=== PATIENT | male | born 1980 | race Hispanic/Latino ===

== ENCOUNTER 2021-06-16 21:15 | Emergency (ER) | payer SELFPAY ==
[2021-06-16] VITALS (9 sets, daily range): BP systolic 118–141; BP diastolic 73–82; PULSE 68–98; RESP 17–22; TEMP 37; O2SAT 98–100; BMI 19.7
--- NOTE | 2021-06-16 22:19 | ED.ARRPALP ---
HPI - Arrhythmia/Palpitations General Chief Complaint: Arrhythmia/Palpitations Stated Complaint: TAKEN DRUGS AND ALCOHOL NOT WELL Time Seen by Provider: 06/16/21 21:47 Source: patient Mode of arrival: Ambulatory History of Present Illness HPI narrative: Otherwise healthy 41-year-old gentleman with very little alcohol or drug use exposure was out Thursday night with friends drinking, snorting white lines of powder that he thought was cocaine and using marijuana. Since then he has been agitated, anxious, unable to sleep has no appetite and is hypervigilant. He comes in for further evaluation. He complains that his stomach is somewhat upset, mild headache, no vomiting or diarrhea. No palpitations or chest pain. Related Data Allergies Allergy/AdvReac Type Severity Reaction Status Date / Time No Known Drug Allergies Allergy Verified 06/16/21 22:31 Review of Systems Review of Systems Narrative: Remainder of complete review of systems is otherwise unremarkable except for that included in the HPI. Exam Initial Vital Signs Initial Vital Signs: Vital Signs Temperature 98.6 F 06/16/21 21:23 Pulse Rate 98 H 06/16/21 21:23 Respiratory Rate 20 06/16/21 21:23 Blood Pressure 141/79 H 06/16/21 21:23 Pulse Oximetry 98 06/16/21 21:23 General: Healthy appearing, in no acute distress. Hypervigilant but able to give a complete and coherent history. Well-nourished well-developed HEENT: Moist mucous membranes, normal sclera with reactive pupils, Neck: No JVD, supple Respiratory: Lungs are clear to auscultation, no wheezing no rales no rhonchi. Full and symmetrical air movement Cardiac: Regular rate and rhythm no murmurs no bruits Abdomen: Soft, nontender, good bowel tones, no flank pain Skin: Warm and dry, no rashes Neurologic: Grossly neurologically intact with no obvious asymmetries or abnormalities Extremities: No trauma, well perfused Psych: Hypervigilance but can calm and focus, can maintain eye contact, concerned about his physical condition Course Orders Ordered: ED Orders 06/16/21 20:35 Complete Blood Count AUTO DIFF Stat Comprehensive Metabolic Panel Stat 06/16/21 20:50 urine tox [Urine Drug Screen, Rapid] Stat Discontinued Medications Sodium Chloride (Normal Saline 0.9%) 1,000 mls @ 1,000 mls/hr IV BOLUS ONE Stop: 06/16/21 23:26 Last Admin: 06/16/21 22:46 Dose: 1,000 mls/hr Documented by: ATAYLOR Lorazepam (Lorazepam 2 Mg/Ml Inj) 1 mg IV NOW ONE Stop: 06/16/21 22:28 Last Admin: 06/16/21 22:45 Dose: 1 mg Documented by: FLORY Vital Signs Vital signs: Vital Signs - 8 hr 06/16/21 21:23 06/16/21 21:31 06/16/21 22:00 Temperature 98.6 F Pulse Rate 98 H 78 71 Respiratory Rate 20 22 20 Blood Pressure 141/79 H Pulse Oximetry 98 06/16/21 22:23 06/16/21 22:30 06/16/21 23:00 Temperature Pulse Rate 88 86 79 Respiratory Rate 17 17 21 Blood Pressure 130/82 Pulse Oximetry 98 99 99 06/16/21 23:06 Temperature Pulse Rate 78 Respiratory Rate 21 Blood Pressure 123/73 Pulse Oximetry 98 MDM - Arrhythmia/Palpitations Lab Data Result diagrams: 06/16/21 20:35 06/16/21 20:35 Labs: Lab Results 06/16/21 06/16/21 06/16/21 Range/Units 20:35 20:35 20:50 WBC 6.2 (4.5-11.0) X10^3/uL RBC 4.71 (4.5-5.9) X10^6/uL Hgb 14.1 (13.5-17.5) g/dL Hct 41.9 (41-53) % MCV 88.8 (80-100) fL MCH 30.0 (26-34) PG MCHC 33.8 (30-36) % RDW 13.3 (11.6-14.8) % Plt Count 195 (150-400) X10^3/uL Neut % (Auto) 62.3 (50-75) % Lymph % (Auto) 28.0 (25-40) % [place] % (Auto) 8.0 (3-14) % Eos % (Auto) 1.1 L (2-4) % Baso % (Auto) 0.6 (0-2) % Neut # (Auto) 3900 (7658-5114) /uL Lymph # (Auto) 1700 (5978-5534) /uL [place] # (Auto) 500 (0-900) /uL Eos # (Auto) 100 (0-450) /uL Baso # (Auto) 0 (0-100) /uL Sodium 139 (137-145) mmol/L Potassium 4.3 (3.4-5.1) mmol/L Chloride 109 H (98-107) mmol/L Carbon Dioxide 22 (22-32) mmol/L BUN 17 (9-20) mg/dL Creatinine 0.74 (0.66-1.25) mg/dL Estimated GFR > 60.0 (>60) mL/min BUN/Creatinine Ratio 23.0 H (6-22) Glucose 102 H (70-100) mg/dL Calcium 9.1 (8.4-10.2) mg/dL Total Bilirubin 0.7 (0.2-1.3) mg/dL AST 37 (17-59) IU/L ALT 19 (<50) IU/L Alkaline Phosphatase 84 (38-126) U/L Total Protein 8.1 (6.3-8.2) g/dL Albumin 4.7 (3.5-5.0) g/dL Globulin 3.4 (1.7-4.1) g/dL Albumin/Globulin Ratio 1.4 (1.0-2.8) U Opiates 300ng/mL cut Negative (Negative) Ur Oxycodone Screen Negative (Negative) Urine Methadone Screen Negative (Negative) Ur Barbiturates Screen Negative (Negative) U Tricyclic Antidepress Negative (Negative) Ur Phencyclidine Scrn Negative (Negative) Ur Amphetamines Screen Positive H (Negative) U Methamphetamines Scrn Positive H (Negative) Ur MDMA Scrn (Ecstasy) Negative (Negative) U Benzodiazepines Scrn Negative (Negative) Urine Cocaine Screen Negative (Negative) U Marijuana (THC) Screen Negative (Negative) MDM Narrative Medical decision making narrative: 41-year-old gentleman with minimal drug or alcohol exposure not he was doing lines of cocaine with some friends on Thursday it turns out he was doing lines of methamphetamine. His symptoms are entirely consistent with a hypervigilance associated with methamphetamine. He is calm nicely with a dose of Ativan and a L of fluid. He has a ride home tonight. Will give him an oral dose of Valium to help again with the hyperstimulation/hypervigilance. There is no sign of acute coronary syndrome or infection. No sign of acute psychiatric disturbance. He is safe for home discharge Discharge Plan Departure Patient Disposition: Home Clinical Impression: Adverse reaction to drug Activity Restrictions/Additional Instructions: Thank you for coming in tonight It turns out that what you thought was cocaine that your snorting on Thursday night was in fact methamphetamine. The stimulant effects from methamphetamine can last for days and that is why you are having trouble sleeping and have no appetite. In the emergency department you were given a L of fluid and benzodiazepines to help slow your brain down. There is no other clinical problem and you do not need to be in the hospital Your body clearly does not respond well to methamphetamine and I would recommend avoiding it at all cost in the future.
[2021-06-16] MEDS: LORazepam 2 MG/ML INJ 1 MG IV (22:45)
[2021-06-16] MEDS: SODIUM CHLORIDE 0.9% 1,000 ML 1000 ML IV (22:46)
[2021-06-16 22:48] LABS: Add Manual Diff / Slide Review NO; Basophils Absolute Auto 0 /uL (0-100); Basophils Percent Auto 0.6 % (0-2); Eosinophils Absolute Auto 100 /uL (0-450); Eosinophils Percent Auto 1.1 % (2-4); Hematocrit 41.9 % (41-53); Hemoglobin 14.1 g/dL (13.5-17.5); Lymphocytes Absolute Auto 1700 /uL (1100-4500); Mean Corpuscular HGB Conc 33.8 % (30-36); Mean Corpuscular Volume 88.8 fL (80-100); Monocytes Absolute Auto 500 /uL (0-900); Neutrophils Absolute Auto 3900 /uL (1500-7000); Neutrophils Percent Auto 62.3 % (50-75); Platelet Count 195 X10^3/uL (150-400); Red Blood Cell Count 4.71 X10^6/uL (4.5-5.9); Red Cell Distribution Width 13.3 % (11.6-14.8); White Blood Cell Count 6.2 X10^3/uL (4.5-11.0)
[2021-06-16 22:56] LABS: Alanine Aminotransferase 19 IU/L (<50); Albumin 4.7 g/dL (3.5-5.0); Albumin Globulin Ratio 1.4 (1.0-2.8); Alkaline Phosphatase 84 U/L (38-126); Aspartate Aminotransferase 37 IU/L (17-59); Bilirubin Total 0.7 mg/dL (0.2-1.3); Blood Urea Nitrogen 17 mg/dL (9-20); Calcium 9.1 mg/dL (8.4-10.2); Carbon Dioxide 22 mmol/L (22-32); Chloride 109 mmol/L (98-107); Estimated Glomerular Filt Rate > 60.0 mL/min (>60); Globulin 3.4 g/dL (1.7-4.1); Glucose 102 mg/dL (70-100); HEMOLYSIS 54 (0-50); Potassium 4.3 mmol/L (3.4-5.1); Sodium 139 mmol/L (137-145); Total Protein 8.1 g/dL (6.3-8.2)
[2021-06-16 23:04] LABS: UR Morphine/Opiate cutoff 300 Negative (Negative); Ur Creatinine 20 (Normal); Ur Specific Gravity 1.025 (Normal); Urine Amphetamines Positive (Negative); Urine Cocaine Negative (Negative); Urine Tetrahydrocannabinol Negative (Negative); Urine pH 5 (Normal)
[2021-06-16 23:05] LABS: Urine Barbiturates Negative (Negative); Urine Benzodiazepines Negative (Negative); Urine MDMA Negative (Negative); Urine Methadone Negative (Negative); Urine Methamphetamines Positive (Negative); Urine Oxycodone Negative (Negative); Urine Phencyclidine Negative (Negative); Urine Tricyclic Antidepressant Negative (Negative)
[2021-06-17] VITALS: BP 125/84; PULSE 85; RESP 18; O2SAT 100
[2021-06-17] MEDS: diazePAM 5 MG TABLET PO (00:08)
== END 2021-06-17 00:19 | disposition home or self-care (01) ==
PROVIDERS: Emergency Provider Emergency Medicine
DX: R45.1 Restlessness and agitation (principal); R51.9 Headache, unspecified; R03.0 Elevated blood-pressure reading, without diagnosis of hypertension; T43.625A Adverse effect of amphetamines, initial encounter
CPT/HCPCS: 36415; 80053; 80305; 85025; 93005; 93010; 96374; 99284; J2060

== ENCOUNTER 2022-09-22 09:38 | Emergency (ER) | payer SELFPAY ==
[2022-09-22] VITALS (7 sets, daily range): BP systolic 113–127; BP diastolic 69–79; PULSE 64–83; RESP 11–22; TEMP 36.4–36.7; O2SAT 96–99; BMI 18.8
--- NOTE | 2022-09-22 09:50 | DI.RAD.S_ITS ---
PROCEDURE: XR CHEST 1V INDICATIONS: cough TECHNIQUE: One view of the chest was acquired. COMPARISON: None. FINDINGS: Surgical changes and devices: None. Lungs and pleura: There is ill-defined biapical nodularity with pleural parenchymal scarring and cephalad retraction of the pulmonary jonatan. No airspace consolidation. No pleural effusions or pneumothorax. Mediastinum: Mediastinal contours appear normal. Heart size is normal. Bones and chest wall: No suspicious bony lesions. Overlying soft tissues appear unremarkable. IMPRESSION: 1. Findings are suggestive of chronic granulomatous disease. There is biapical involvement with biapical volume loss and pleural parenchymal changes. Dictated by: Jeyson Araya M.D. on 09/22/2022 at 10:36 Approved by: Jeyson Araya M.D. on 09/22/2022 at 10:38
[2022-09-22 10:06] LABS: Add Manual Diff / Slide Review NO; Basophils Absolute Auto 0 /uL (0-100); Basophils Percent Auto 0.8 % (0-2); Eosinophils Absolute Auto 0 /uL (0-450); Eosinophils Percent Auto 0.9 % (2-4); Hemoglobin 13.7 g/dL (13.5-17.5); Lymphocytes Absolute Auto 1800 /uL (1100-4500); Lymphocytes Percent Auto 32.2 % (25-40); Mean Corpuscular HGB Conc 34.1 % (30-36); Mean Corpuscular Hemoglobin 30.3 PG (26-34); Mean Corpuscular Volume 88.8 fL (80-100); Monocytes Absolute Auto 400 /uL (0-900); Monocytes Percent Auto 7.8 % (3-14); Neutrophils Absolute Auto 3300 /uL (1500-7000); Neutrophils Percent Auto 58.3 % (50-75); Platelet Count 256 X10^3/uL (150-400); Red Cell Distribution Width 13.2 % (11.6-14.8); White Blood Cell Count 5.6 X10^3/uL (4.5-11.0)
[2022-09-22] MEDS: SODIUM CHLORIDE 0.9% 1,000 ML 1000 ML IV (10:07)
[2022-09-22] MEDS: ONDANSETRON 4 MG/2 ML INJ IV (10:07)
--- NOTE | 2022-09-22 10:07 | ED.CHESTPAIN ---
HPI - Chest Pain General Chief Complaint: Chest Pain Stated Complaint: Chest pain, cough, vomiting, weakness Time Seen by Provider: 09/22/22 09:45 Source: patient Mode of arrival: Ambulatory Limitations: no limitations and language barrier History of Present Illness HPI narrative: Patient 42-year-old finish speaking male without significant past medical history presenting today with a few days of cough shortness of breath. 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 He denies any significant shortness of breath. He has a little cough. He feels a little nauseous no significant abdominal pain. No nausea or vomiting. Decreased appetite. Just generally feeling unwell. Related Data Home Medications Medication Instructions Recorded Confirmed No Known Home Medications 09/22/22 09/22/22 Allergies Allergy/AdvReac Type Severity Reaction Status Date / Time No Known Drug Allergies Allergy Verified 09/22/22 09:48 Review of Systems Review of Systems ROS Unobtainable: All systems reviewed & are unremarkable except as noted in HPI and below Patient History Social History Smoking Status: Current some day smoker Smoking Status: Current some day smoker tobacco type: cigars alcohol intake frequency: 3 or more drinks per day Substance Use Type: marijuana Exam Initial Vital Signs Initial Vital Signs: Vital Signs Temperature 98.0 F 09/22/22 09:40 Pulse Rate 83 09/22/22 09:40 Respiratory Rate 20 09/22/22 09:40 Blood Pressure 127/79 09/22/22 09:40 Pulse Oximetry 99 09/22/22 09:40 Oxygen Delivery Method Room Air 09/22/22 09:40 GENERAL: Alert thin well-appearing 42-year-old male HEENT: Head atraumatic,EOMI, pupils reactive, face symmetric, moist mucous membranes CARDIOVASCULAR: Regular rate and rhythm without murmurs, rubs or gallops. RESPIRATORY: Breath sounds equal bilaterally, no wheezes rales or rhonchi. ABDOMEN: Soft, nontender. Normoactive bowel sounds all 4 quadrants. No guarding or rebound. EXTREMITIES: Normal range of motion, no clubbing or edema. Neurovascularly intact NEUROLOGICAL: Alert and oriented x4. SKIN: Warm, dry, no laceration, no petechiae, no rashes or lesions. Course Orders Ordered: ED Orders 09/22/22 09:48 Complete Blood Count AUTO DIFF Stat Comprehensive Metabolic Panel Stat Lipase Stat Procalcitonin Stat Troponin & CK Cardiac Panel Stat 09/22/22 09:50 XR chest 1V Stat EKG-12 Lead Stat 09/22/22 09:58 Covid-19 + FLU A/B + RSV - PCR Stat Discontinued Medications Sodium Chloride (Normal Saline 0.9%) 1,000 mls @ 1,000 mls/hr IV CONT LETY Last Infusion: 09/22/22 11:11 Dose: 0 mls/hr Documented By: Admin: 09/22/22 10:07 Dose: 1,000 mls/hr Documented By: SHIV Ondansetron HCl (Ondansetron 4 Mg/2 Ml Inj) 4 mg IV NOW ONE Stop: 09/22/22 09:51 Last Admin: 09/22/22 10:07 Dose: 4 mg Documented By: SHIV Pantoprazole Sodium (Pantoprazole 40 Mg Vial) 40 mg IV NOW ONE Stop: 09/22/22 10:09 Last Admin: 09/22/22 10:10 Dose: 40 mg Documented By: SHIV Vital Signs Vital signs: Vital Signs - 8 hr 09/22/22 09:40 09/22/22 09:45 09/22/22 10:00 Temperature 98.0 F Pulse Rate 83 77 69 Respiratory Rate 20 14 15 Blood Pressure 127/79 Pulse Oximetry 99 96 97 Oxygen Delivery Method Room Air 09/22/22 10:01 09/22/22 10:01 09/22/22 10:30 Temperature Pulse Rate 67 Respiratory Rate 11 L Blood Pressure 113/73 114/69 Pulse Oximetry 97 Oxygen Delivery Method 09/22/22 10:30 09/22/22 11:00 09/22/22 11:00 Temperature Pulse Rate 67 64 Respiratory Rate 19 22 Blood Pressure 113/69 Pulse Oximetry 97 97 Oxygen Delivery Method 09/22/22 11:32 Temperature 97.6 F Pulse Rate 81 Respiratory Rate 20 Blood Pressure 113/69 Pulse Oximetry 99 Oxygen Delivery Method Room Air MDM - Chest Pain Lab Data 09/22/22 09:48 09/22/22 09:48 Labs: Lab Results 09/22/22 09/22/22 09/22/22 Range/Units 09:48 09:48 09:58 WBC 5.6 (4.5-11.0) X10^3/uL RBC 4.50 (4.5-5.9) X10^6/uL Hgb 13.7 (13.5-17.5) g/dL Hct 40.0 L (41-53) % MCV 88.8 (80-100) fL MCH 30.3 (26-34) PG MCHC 34.1 (30-36) % RDW 13.2 (11.6-14.8) % Plt Count 256 (150-400) X10^3/uL Neut % (Auto) 58.3 (50-75) % Lymph % (Auto) 32.2 (25-40) % [place] % (Auto) 7.8 (3-14) % Eos % (Auto) 0.9 L (2-4) % Baso % (Auto) 0.8 (0-2) % Neut # (Auto) 3300 (4051-2692) /uL Lymph # (Auto) 1800 (6421-4855) /uL [place] # (Auto) 400 (0-900) /uL Eos # (Auto) 0 (0-450) /uL Baso # (Auto) 0 (0-100) /uL Sodium 137 (137-145) mmol/L Potassium 3.9 (3.4-5.1) mmol/L Chloride 104 (98-107) mmol/L Carbon Dioxide 25 (22-32) mmol/L BUN 12 (9-20) mg/dL Creatinine 0.79 (0.66-1.25) mg/dL Estimated GFR > 60 (>60) mL/min BUN/Creatinine Ratio 15.2 (6-22) Glucose 96 (70-100) mg/dL Calcium 9.0 (8.4-10.2) mg/dL Total Bilirubin 0.6 (0.2-1.3) mg/dL AST 30 (17-59) IU/L ALT 26 (<50) IU/L Alkaline Phosphatase 111 (38-126) U/L Total Creatine Kinase 152 (55-170) U/L Troponin I < 0.012 (0.01-0.034) ng/mL Total Protein 8.0 (6.3-8.2) g/dL Albumin 4.5 (3.5-5.0) g/dL Globulin 3.5 (1.7-4.1) g/dL Albumin/Globulin Ratio 1.3 (1.0-2.8) Lipase 92 (23-300) U/L Procalcitonin 0.05 (<0.5) ng/mL SARS-CoV-2 (PCR) Negative (Negative) Influenza A (RT-PCR) Flu a negative (NEGATIVE) Influenza B (RT-PCR) Flu b negative (NEGATIVE) RSV (PCR) Negative (Negative) Imaging Data Chest x-ray: Radiologist's Impression: PROCEDURE:? XR CHEST 1V ? INDICATIONS:? cough ? TECHNIQUE:? One view of the chest was acquired.? ? COMPARISON:? None. ? FINDINGS:? ? Surgical changes and devices:? None.? ? Lungs and pleura:? There is ill-defined biapical nodularity with pleural parenchymal scarring and cephalad retraction of the pulmonary jonatan.? No airspace consolidation.? No pleural effusions or pneumothorax.? ? Mediastinum:? Mediastinal contours appear normal.? Heart size is normal.? ? Bones and chest wall:? No suspicious bony lesions.? Overlying soft tissues appear unremarkable.? ? IMPRESSION:? ? 1. Findings are suggestive of chronic granulomatous disease.? There is biapical involvement with biapical volume loss and pleural parenchymal changes. ? ? Dictated by: Jeyson Araya M.D. on 09/22/2022 at 10:36 ? ? ECG Data Interpretation: Sinus rhythm rate 64 AL interval 134 QRS [address] changes no T-wave inversions MDM Narrative Medical decision making narrative: Patient 42-year-old male presenting today with cough chest burning. He is actually feeling better after Protonix. Blood work is overall reassuring without leukocytosis anemia electrolyte abnormality or RUY. Viral panel is negative. Chest x-ray does show some chronic granulomatous disease but no acute pneumonia. Patient reports that he had tuberculosis he took medicine for a whole year and was treated for it. He has no hemoptysis no other symptoms today. Possible viral syndrome. He is not hypoxic febrile tachycardic no evidence of sepsis. Discharge Plan Departure Patient Disposition: Home Clinical Impression: Upper respiratory infection Instructions: DI for Viral Upper Respiratory Infection -- Adult Activity Restrictions/Additional Instructions: *You have been diagnosed with upper respiratory infection *What to do: At this time no need for medicine. Rest if needed. *Continue to take medications as directed Motrin 600 mg every 6 hours if needed for [id number] pain or fever Tylenol/acetaminophen 1000 mg every 6 hours if needed for pain or fever *Follow up with your primary care provider in 2-3 days or call [phone] *Return to ER if you should have increased cough shortness of breath coughing up blood or any new, worsening or concerning symptoms Prescriptions: No Action No Known Home Medications Referrals: Miscellaneous,Doctor, [Primary Care Provider] - Stand Alone Forms: Patient Portal/API
[2022-09-22 10:09] LABS: Alanine Aminotransferase 26 IU/L (<50); Albumin 4.5 g/dL (3.5-5.0); Albumin Globulin Ratio 1.3 (1.0-2.8); Alkaline Phosphatase 111 U/L (38-126); Aspartate Aminotransferase 30 IU/L (17-59); BUN Creatinine Ratio 15.2 (6-22); Bilirubin Total 0.6 mg/dL (0.2-1.3); Blood Urea Nitrogen 12 mg/dL (9-20); Carbon Dioxide 25 mmol/L (22-32); Chloride 104 mmol/L (98-107); Creatine Kinase 152 U/L (55-170); Estimated Glomerular Filt Rate > 60 mL/min (>60); Globulin 3.5 g/dL (1.7-4.1); Glucose 96 mg/dL (70-100); HEMOLYSIS < 15 (0-50); Lipase 92 U/L (23-300); Potassium 3.9 mmol/L (3.4-5.1); Sodium 137 mmol/L (137-145)
[2022-09-22] MEDS: PANTOPRAZOLE 40 MG VIAL IV (10:10)
[2022-09-22 10:21] LABS: Troponin I < 0.012 ng/mL (0.01-0.034)
[2022-09-22 10:26] LABS: Procalcitonin 0.05 ng/mL (<0.5)
[2022-09-22 10:39] LABS: Influenza A - CEPHEID Flu A NEGATIVE (NEGATIVE); Influenza B - CEPHEID Flu B NEGATIVE (NEGATIVE); Respiratory Syncytial Virus Negative (Negative)
[2022-09-22 10:54] LABS: COVID-19 CEPHEID 4-PLEX PCR Negative (Negative)
== END 2022-09-22 11:30 | disposition home or self-care (01) ==
PROVIDERS: Emergency Provider Emergency Medicine
DX: J06.9 Acute upper respiratory infection, unspecified (principal); R06.02 Shortness of breath; Z20.822 Contact with and (suspected) exposure to COVID-19
CPT/HCPCS: 0241U; 36415; 71045; 80053; 82550; 83690; 84145; 84484; 85025; 93005; 96361; 96374; 96375; 99284; C9113; J2405